=== PATIENT | male | born 1990 | race African-American/Black ===

== ENCOUNTER 2019-10-09 11:31 | Emergency (ER) | payer OTHER ==
--- NOTE | 2019-10-09 11:49 | ED ---
Allergic Reaction/Systemic - HPI Summary HPI Summary: Pt is a 29 y/o M presenting to the ED with a chief complaint of an allergic reaction. Pt states this has been happening intermittently for about 2 months so he has tried to figure out what is causing it by process of elimination, but hes been unsuccessful. This morning, he woke up around 0945 to find his body erythematous and covered in hives from his neck down to his feet. He describes the feeling as burning and pruritic, and notes he had some diarrhea and throat tightening. He took a Benadryl (25mg) which helped alleviate somewhat. He denies fever, recent weight loss, night diaphoresis, or blood in stool. Recently tested negative for STIs, including HIV. Tested positive recently for Crohns, he is being set up with [facility]. - History of Current Complaint Chief Complaint: EDAllergicReaction Time Seen by Provider: 10/09/19 11:37 Hx Obtained From: Patient Onset/Duration: Sudden Onset, Started hours ago, Still Present Timing: Intermittent, Lasting Hours Severity Initially: Moderate Severity Currently: Mild Pain Intensity: 3 Pain Scale Used: 0-10 Numeric Location: Diffuse Character: Pruritus, Pain, Hives Aggravating Factor(s): Nothing Alleviating Factor(s): Antihistamines Associated Signs And Symptoms: Positive: Rash, Throat Tightening. Negative: Cough Wheezing - Allergies/Home Medications Allergies/Adverse Reactions: Allergies Allergy/AdvReac Type Severity Reaction Status Date / Time Penicillins Allergy Rash Verified 10/09/19 11:36 vancomycin Allergy Rash Verified 10/09/19 11:36 PMH/Surg Hx/FS Hx/Imm Hx Previously Healthy: Yes Respiratory History: Reports: Hx Asthma GI History: Reports: Hx Crohn's Disease Infectious Disease History: No Infectious Disease History: Denies: Hx Human Immunodeficiency Virus (HIV), Traveled Outside the [place] in Last 30 Days - Family History Known Family History: Positive: Cardiac Disease - CHF, Diabetes - Social History Alcohol Use: Occasionally Hx Substance Use: No Substance Use Type: Reports: None Hx Tobacco Use: No Smoking Status (MU): Never Smoked Tobacco Review of Systems Negative: Skin Diaphoresis - night, Other - weight loss Positive: Other - throat tightening Positive: Abdominal Pain, Diarrhea. Negative: Other - blood in stool Positive: Myalgia Positive: Rash - hives, Other - pruritus All Other Systems Reviewed And Are Negative: Yes Physical Exam - Summary Physical Exam Summary: Constitutional: Well-developed, Well-nourished, Alert. (-) Distressed Skin: Warm, Dry. Sporadic areas of erythema with faint urticaria HENT: Normocephalic; Atraumatic. Oropharynx normal, no angioedema. Eyes: Conjunctiva normal Neck: Musculoskeletal ROM normal neck. (-) JVD, (-) Stridor, (-) Tracheal deviation Cardio: Rhythm regular, rate normal, Heart sounds normal; Intact distal pulses; The pedal pulses are 2+ and symmetric. Radial pulses are 2+ and symmetric. (-) Murmur Pulmonary/Chest wall: Effort normal. (-) Respiratory distress, (-) Wheezes, (-) Rales Abd: Soft, (-) tenderness, (-) Distension, (-) Guarding, (-) Rebound Musculoskeletal: (-) Edema Lymph: (-) Cervical adenopathy Neuro: Alert, Oriented x3 Psych: Mood and affect Normal Triage Information Reviewed: Yes Vital Signs On Initial Exam: Initial Vitals Temp Pulse Resp BP Pulse Ox 98.8 F 67 19 133/81 97 10/09/19 11:32 10/09/19 11:32 10/09/19 11:32 10/09/19 11:32 10/09/19 11:32 Vital Signs Reviewed: Yes Procedures - Sedation Patient Received Moderate/Deep Sedation with Procedure: No Diagnostics - Vital Signs Vital Signs Temp Pulse Resp BP Pulse Ox 10/09/19 11:32 98.8 F 67 19 133/81 97 - Laboratory Result Diagrams: 10/09/19 12:02 10/09/19 12:02 Lab Statement: Any lab studies that have been ordered have been reviewed, and results considered in the medical decision making process. Allergic Reaction Course/Dx - Course Course Of Treatment: Pt is a 29 y/o M presenting to the ED with a chief complaint of an allergic reaction. He woke up this morning around 0945 with hives and erythema covering his body from his neck to his feet. He reports diarrhea, extremity myalgias, skin burning, and pruritus. He denies fever, recent weight loss, night diaphoresis, or blood in stool. Recently tested negative for STIs, including HIV. Tested positive recently for Crohns, he is being set up with GI [facility] tomorrow. On exam, pt has sporadic areas of erythema with faint urticaria. Oropharynx WNL without angioedema. - Diagnoses Provider Diagnoses: Allergic reaction Discharge ED - Sign-Out/Discharge Documenting (check all that apply): Patient Departure - Discharge Plan Condition: Good Disposition: HOME Prescriptions: predniSONE [Prednisone 20 MG TAB] 40 mg PO DAILY 4 Days #8 tablet Patient Education Materials: General Allergic Reaction (ED) Referrals: [facility] [Outside] Additional Instructions: [facility] call your primary care provider to set-up a follow- up appointment so they can continue pursuing what is causing this reaction. Return to the emergency department with any new or worsening symptoms. - Billing Disposition and Condition Condition: GOOD Disposition: Home - Attestation Statements Document Initiated by Katyaiblillian: Yes Documenting Scribe: Lyssa Go Provider For Whom Shannon is Documenting (Include Credential): Hussein Mc DO. Scribe Attestation: Lyssa Koenig scribed for Hussein Mc DO. on 10/09/19 at 1351. Scribe Documentation Reviewed: Yes Provider Attestation: The documentation as recorded by the katyaibeLyssa accurately reflects the service I personally performed and the decisions made by Hussein boyer DO. Status of Scribe Document: Viewed
[2019-10-09] MEDS ORDERED: methylPREDNISolone 125 MG* 2 ML VIAL IV ONE (11:51)
[2019-10-09] MEDS ORDERED: diPHENhydraMINE IV* 50 MG/ML 1 ml VIAL (BENADRYL) IV ONE (11:51)
[2019-10-09] MEDS ORDERED: Famotidine IV* 10 MG/ML 2 ML (20 mg) IV SLOW PU ONE (11:51)
[2019-10-09] MEDS ORDERED: NS 0.9% 1000 ML** 1,000 ML IV ONE (11:51)
[2019-10-09 12:15] LABS: ABS Basophils 0.1 10^3/ul (0-0.2); ABS Eosinophils 0.1 10^3/ul (0-0.6); ABS Lymphocytes 1.1 10^3/ul (1.0-4.8); ABS Monocytes 0.5 10^3/ul (0-0.8); ABS Neutrophils 4.7 10^3/ul (1.5-7.7); Eosinophil % 1.4 %; Hematocrit 43 % (42-52); Hemoglobin 14.7 g/dL (14.0-18.0); Lymphocyte % 16.4 %; Mean Corpuscular HGB Conc 34 g/dL (31-36); Mean Corpuscular Hemoglobin 32 pg (27-31); Mean Corpuscular Volume 93 fL (80-94); Mean Platelet Volume 8.3 fL (7.4-10.4); Nucleated Red Blood Cells % 0.1; Platelet Count 245 10^3/uL (150-450); Red Blood Count 4.58 10^6 /uL (4.18-5.48); Red Cell Distribution Width 13 % (10-15); White Blood Count 6.4 10^3/uL (3.5-10.8)
[2019-10-09 12:25] LABS: ALT 11 U/L (7-52); AST 16 U/L (13-39); Albumin 4.3 g/dL (3.2-5.2); Albumin/Globulin Ratio 1.9 (1-3); Alkaline Phosphatase 54 U/L (34-104); Anion Gap 4 mmol/L (2-11); BUN/Creatinine Ratio 18.5 (8-20); Blood Urea Nitrogen 17 mg/dL (6-24); C Reactive Protein < 1.00 mg/L (<8.01); CO2 Carbon Dioxide 26 mmol/L (22-32); Calcium 9.2 mg/dL (8.6-10.3); Chloride 107 mmol/L (101-111); EGFR African American 119.4 (>60); EGFR Non-African American 98.7 (>60); Globulin 2.3 g/dL (2-4); Glucose 88 mg/dL (70-100); Potassium 3.9 mmol/L (3.5-5.0); Sodium 137 mmol/L (135-145); Total Protein 6.6 g/dL (6.4-8.9)
[2019-10-09 13:19] LABS: Erythrocyte Sed Rate 2 mm/Hr (0-14)
[2019-10-09 13:21] VITALS: BP 106/62
== END 2019-10-09 13:21 | disposition home or self-care (01) ==
LOC: ED 11:31
DX: T78.40XA Allergy, unspecified, initial encounter (principal); X58.XXXA Exposure to other specified factors, initial encounter; J45.909 Unspecified asthma, uncomplicated; K50.90 Crohn's disease, unspecified, without complications; Z88.0 Allergy status to penicillin; Z88.1 Allergy status to other antibiotic agents
CPT/HCPCS: 36415; 80053; 85025; 85652; 86140; 96361; 96374; 96375; 99282; J1200; J2930